=== PATIENT | male | born 1955 | race Two or more races ===

== ENCOUNTER 2017-12-15 12:35 | Outpatient (CLI) | payer OTHER | END 2017-12-15 12:43 | disposition home or self-care (01) | LOC: SONOGRAMA 12:35 | DX: R10.9 Unspecified abdominal pain (principal) ==

== ENCOUNTER 2020-11-15 16:58 | Outpatient (CLI) | payer OTHER | END 2020-11-15 17:07 | disposition home or self-care (01) | LOC: RAD 16:58 → LAB 16:58 | PROVIDERS: ATTEND Orthopaedic Surgery | DX: M25.561 Pain in right knee (principal); M25.562 Pain in left knee ==

== ENCOUNTER → 2021-01-01 | Outpatient (CLI) | payer OTHER | END | disposition home or self-care (01) | LOC: NUCLEAR 13:30 | PROVIDERS: ATTEND Orthopaedic Surgery | DX: M81.0 Age-related osteoporosis without current pathological fracture (principal) ==

== ENCOUNTER → 2021-02-06 12:00 | Outpatient (CLI) | payer OTHER | END | disposition home or self-care (01) | LOC: LAB 12:00 | PROVIDERS: ATTEND Orthopaedic Surgery | DX: E56.1 Deficiency of vitamin K (principal); E55.9 Vitamin D deficiency, unspecified ==

== ENCOUNTER 2022-08-26 13:44 | Outpatient (CLI) | payer OTHER | END 2022-08-26 13:46 | disposition home or self-care (01) | LOC: NUCLEAR 13:44 | PROVIDERS: ATTEND Family Medicine Adult Medicine | DX: M81.0 Age-related osteoporosis without current pathological fracture (principal) ==

== ENCOUNTER 2022-09-18 09:35 | Outpatient (CLI) | payer OTHER | END 2022-09-18 09:48 | disposition home or self-care (01) | LOC: TOM 09:35 | PROVIDERS: ATTEND Family Medicine Adult Medicine | DX: K76.1 Chronic passive congestion of liver (principal); K70.9 Alcoholic liver disease, unspecified ==

== ENCOUNTER 2022-10-04 13:10 | Outpatient (CLI) | payer OTHER | END 2022-10-04 13:18 | disposition home or self-care (01) | LOC: RAD 13:10 | DX: M54.50 Low back pain, unspecified (principal); M54.2 Cervicalgia; M54.6 Pain in thoracic spine ==

== ENCOUNTER 2022-12-25 10:05 | Outpatient (CLI) | payer OTHER | END 2022-12-25 10:11 | disposition home or self-care (01) | LOC: RX STUDY 10:05 | DX: K21.9 Gastro-esophageal reflux disease without esophagitis (principal) ==